=== PATIENT | female | born 1990 ===

== ENCOUNTER → 2016-10-13 | Outpatient (CLI) | payer OTHER ==
[2016-10-13 12:50] LABS: CH 28.3; CHCM 33.7; HCT 28.8 % (34.0-46.0); HDW 2.42; HGB 10.2 gm/dL (11.4-16.0); MCH 29.8 pg (25.0-35.0); MCHC 35.3 g/dL (31.0-37.0); MCV 84.4 fL (80.0-100.0); Mean Platelet Volume 6.8; RBC 3.41 m/uL (3.80-5.40); RDW 13.8 % (11.5-15.5); WBC 9.4 k/uL (3.8-10.6)
[2016-10-13 12:55] LABS: Glucose 81 mg/dL (74-99); Non-African American GFR(MDRD) >60 (>60 ml/min/1.73 sqM)
[2016-10-13 13:26] LABS: Hepatitis B Surface Ag Index 0.04
[2016-10-13 18:31] LABS: Treponemal Ab Non-Reactive (Non-Reactive)
== END | disposition home or self-care (01) ==
LOC: LABWHC1 12:10
PROVIDERS: ATTEND Obstetrics & Gynecology
DX: Z34.82 Encounter for supervision of other normal pregnancy, second trimester (principal); R53.83 Other fatigue
CPT/HCPCS: 36415; 82565; 82947; 85027; 86762; 86780; 86850; 86900; 86901; 87340; 87390

== ENCOUNTER 2016-10-23 22:14 | Observation (INO) | payer OTHER ==
[2016-10-23] MEDS ORDERED: SODIUM CHLORIDE 0.9% 1,000 ML IV STA (23:13)
--- NOTE | 2016-10-23 23:31 | ED ---
Abdominal Pain HPI - General Chief Complaint: Abdominal Pain Stated Complaint: abdominal pain/16 wks preg Time Seen by Provider: 10/23/16 23:00 Source: patient, RN notes reviewed Mode of arrival: ambulatory Limitations: no limitations - History of Present Illness Initial Comments: This a 26 year old female presents emergency Department chief complaint of right upper quadrant abdominal pain. Patient states started last day or 2. Patient states that she does has some frequency and dysuria. Denies any back pain on the right or left side. Denies any vaginal bleeding or vaginal discharge. Patient states she is A0 currently 16 weeks in her OB is Dr. Ledbetter. Patient states that she's had prior sections. Patient denies any chest pain or shortness of breath. Denies any diarrhea constipation. - Related Data Home Medications Medication Instructions Recorded Confirmed Sdn-Eixl-[id number] Acid 1 cap PO DAILY 10/23/16 10/23/16 [-U Capsule (formulary)] Allergies Allergy/AdvReac Type Severity Reaction Status Date / Time No Known Allergies Allergy Verified 10/23/16 23:02 Review of Systems ROS Statement: Those systems with pertinent positive or pertinent negative responses have been documented in the HPI. ROS Other: All systems not noted in ROS Statement are negative. Past Medical History Past Medical History: No Reported History History of Any Multi-Drug Resistant Organisms: None Reported Past Surgical History: Section Past Psychological History: No Psychological Hx Reported Smoking Status: Current every day smoker Past Alcohol Use History: None Reported Past Drug Use History: None Reported General Exam Limitations: no limitations General appearance: alert, in no apparent distress Neck exam: Present: normal inspection. Absent: tenderness, meningismus, lymphadenopathy Respiratory exam: Present: normal lung sounds bilaterally. Absent: respiratory distress, wheezes, rales, rhonchi, stridor Cardiovascular Exam: Present: regular rate, normal rhythm, normal heart sounds. Absent: systolic murmur, diastolic murmur, rubs, gallop, clicks GI/Abdominal exam: Present: soft, tenderness (Mild to moderate right upper quadrant tenderness), normal bowel sounds. Absent: distended, guarding, rebound , rigid Back exam: Absent: CVA tenderness (R), CVA tenderness (L) Skin exam: Present: warm, dry, intact, normal color. Absent: rash Course Vital Signs 10/23/16 10/23/16 22:23 23:57 Temperature 99.7 F H 97.8 F Pulse Rate 125 H 103 H Respiratory 20 18 Rate Blood Pressure 118/62 103/63 O2 Sat by Pulse 98 98 Oximetry Medical Decision Making - Lab Data Result diagrams: 10/23/16 23:03 10/23/16 23:03 Lab Results 10/23/16 10/23/16 10/23/16 Range/Units 23:03 23:03 23:03 WBC 10.7 H (3.8-10.6) k/uL RBC 3.44 L (3.80-5.40) m/uL Hgb 10.0 L (11.4-16.0) gm/dL Hct 29.3 L (34.0-46.0) % MCV 85.3 (80.0-100.0) fL MCH 29.1 (25.0-35.0) pg MCHC 34.1 (31.0-37.0) g/dL RDW 14.2 (11.5-15.5) % Plt Count 292 (150-450) k/uL Neutrophils % 71 % Lymphocytes % 19 % Monocytes % 5 % Eosinophils % 2 % Basophils % 0 % Neutrophils # 7.6 (1.3-7.7) k/uL Lymphocytes # 2.1 (1.0-4.8) k/uL Monocytes # 0.6 (0-1.0) k/uL Eosinophils # 0.3 (0-0.7) k/uL Basophils # 0.0 (0-0.2) k/uL Sodium 136 L (137-145) mmol/L Potassium 3.8 (3.5-5.1) mmol/L Chloride 104 (98-107) mmol/L Carbon Dioxide 21 L (22-30) mmol/L Anion Gap 11 mmol/L BUN 9 (7-17) mg/dL Creatinine 0.40 L (0.52-1.04) mg/dL Est GFR (MDRD) Af Amer >60 (>60 ml/min/1.73 sqM) Est GFR (MDRD) Non-Af >60 (>60 ml/min/1.73 sqM) Glucose 82 (74-99) mg/dL Calcium 9.4 (8.4-10.2) mg/dL Total Bilirubin 0.1 L (0.2-1.3) mg/dL AST 14 (14-36) U/L ALT 26 (9-52) U/L Alkaline Phosphatase 147 H (38-126) U/L Total Protein 6.0 L (6.3-8.2) g/dL Albumin 3.4 L (3.5-5.0) g/dL Amylase 43 (30-110) U/L Lipase 48 (23-300) U/L Urine Color Yellow Urine Appearance Cloudy H (Clear) Urine pH 6.5 (5.0-8.0) Ur Specific Shepherd 1.013 (1.001-1.035) Urine Protein Trace H (Negative) Urine Glucose (UA) Negative (Negative) Urine Ketones Trace H (Negative) Urine Blood Negative (Negative) Urine Nitrite Positive H (Negative) Urine Bilirubin Negative (Negative) Urine Urobilinogen <2.0 (<2.0) mg/dL Ur Leukocyte Esterase Large H (Negative) Urine RBC 2 (0-5) /hpf Urine WBC 68 H (0-5) /hpf Urine WBC Clumps Few H (None) /hpf Ur Squamous Epith Cells 6 H (0-4) /hpf Urine Bacteria Moderate H (None) /hpf Disposition Clinical Impression: Pyelonephritis, Disposition: ADMITTED IP TO THIS [facility] Condition: Good Referrals: Tyrone Crane MD [Primary Care Provider] - 1-2 days
[2016-10-23 23:39] LABS: Basophils % (A) 0 %; CH 28.9; CHCM 34.1; Eosinophils # (A) 0.3 k/uL (0-0.7); Eosinophils % (A) 2 %; HCT 29.3 % (34.0-46.0); Luc # (Auto) 0.18; Luc % (Auto) 2; Lymphocytes # (A) 2.1 k/uL (1.0-4.8); Lymphocytes % (A) 19 %; MCH 29.1 pg (25.0-35.0); MCHC 34.1 g/dL (31.0-37.0); MCV 85.3 fL (80.0-100.0); Mean Platelet Volume 6.2; Monocytes # (A) 0.6 k/uL (0-1.0); Monocytes % (A) 5 %; Neutrophils # (A) 7.6 k/uL (1.3-7.7); Neutrophils % (A) 71 %; RBC 3.44 m/uL (3.80-5.40); RDW 14.2 % (11.5-15.5); WBC 10.7 k/uL (3.8-10.6); WBC (Perox) 10.57
[2016-10-23 23:46] LABS: Appearance,Urine Cloudy (Clear); Bacteria,Urine Moderate /hpf; Bilirubin,Urine Negative (Negative); Glucose,Urine (UA) Negative (Negative); Ketones,Urine Trace (Negative); Leukocyte Esterase,Urine Large (Negative); Nitrite,Urine Positive (Negative); PH, Urine 6.5 (5.0-8.0); Particle Count 54174; Protein,Urine Trace (Negative); RBC,Urine 2 /hpf (0-5); Specific Gravity,Urine 1.013 (1.001-1.035); Squamous Epithelial Cell,Urine 6 /hpf (0-4); UA Billing (MACRO vs. MICRO) MICRO; Urobilinogen,Urine <2.0 mg/dL (<2.0); WBC,Urine 68 /hpf (0-5)
[2016-10-23 23:55] LABS: ALT 26 U/L (9-52); AST 14 U/L (14-36); Alkaline Phosphatase 147 U/L (38-126); Amylase 43 U/L (30-110); Anion Gap 11 mmol/L; Blood Urea Nitrogen 9 mg/dL (7-17); Calcium 9.4 mg/dL (8.4-10.2); Carbon Dioxide 21 mmol/L (22-30); Chloride 104 mmol/L (98-107); Glucose 82 mg/dL (74-99); Non-African American GFR(MDRD) >60 (>60 ml/min/1.73 sqM); Potassium 3.8 mmol/L (3.5-5.1); Sodium 136 mmol/L (137-145); Total Bilirubin 0.1 mg/dL (0.2-1.3)
[2016-10-23] MEDS ORDERED: cefTRIAXone 2,000 MG in SODIUM CHLORIDE 0.9% 100 ML IVPB STA (23:58)
--- NOTE | 2016-10-24 01:28 | US ---
EXAM: US Abdomen Complete CLINICAL HISTORY: 26-year-old female with pain. TECHNIQUE: Real-time ultrasound of the abdomen (complete) with image documentation. COMPARISON: None FINDINGS: Liver: Liver is mildly enlarged, measuring up to 18.5 cm in craniocaudad dimension. No mass. No intrahepatic bile duct dilation. Gallbladder: Unremarkable. No gallstones. Common bile duct: Unremarkable as visualized, measuring up to 0.3 cm in diameter. No stones. No dilation. Pancreas: Unremarkable as visualized. Right kidney: Measures up to 12.5 cm in length. No stones. No solid mass. Extrarenal pelvis versus pelviectasis, likely related to patient's gravid uterus. IMPRESSION: Right extrarenal pelvis versus pelviectasis, likely related to patient's gravid uterus. Mild hepatomegaly suggested.
[2016-10-24] MEDS: SODIUM CHLORIDE 0.9% 1,000 ML IV SCH ×3 (02:49→23:14)
[2016-10-24 03:41] VITALS: BMI 20.5
[2016-10-24] MEDS: ACETAMINOPHEN TAB 325 MG TAB PO PRN ×3 (03:43→19:10)
--- NOTE | 2016-10-24 11:11 | US ---
EXAMINATION TYPE: US OB >= 14 wk twins DATE OF EXAM: 10/24/2016 COMPARISON: NONE CLINICAL HISTORY: PYELONEPHRITIS AND . RLQ pain GESTATIONAL AGE / DATING Physician Established: (16 weeks/0 days) EDC: 04/10/17 Dates by LMP: (16 weeks/0 days) EDC: 04/10/17 Dates by First Scan: no prior Dates by Current Scan for Baby A: (16 weeks/3 days) EDC: 04/07/17 Dates by Current Scan for Baby B: (16 weeks/3 days) EDC: 04/07/17 GENERAL TWIN SURVEY TWIN A LOCATION in regards to maternal abd: right TWIN B LOCATION in regards to maternal abd: left MEMBRANE SEEN: Yes CERVICAL LENGTH (transabdominal; norm > 3.0cm): 3.2 cm TWIN A: SURVEY/BIOMETRY PLACENTA: Posterior PREVIA: No previa SOCORRO:? 12.9 cm?Normal PRESENTATION: Breech LIE: Transvers with head maternal RT BPD: 3.7 cm 17 weeks / 2 days HC: 13.1 cm 16 weeks / 5 days AC: 10.1 cm 16 weeks / 1 days FL: 1.9 cm 15 weeks / 5 days ESTIMATED WEIGHT IN GRAMS: 143 grams ESTIMATED WEIGHT IN LBS/OZS: 0 lbs. 5 oz. WEIGHT PERCENTAGE BASED ON ESTABLISHED DATES: 44.2% HC/AC: 1.29 normal FL/AC: 19.04 Normal HEART RATE: 142 bpm RHYTHM: Normal TWIN B: SURVEY/BIOMETRY PRESENTATION: Variable LIE: Transverse with head maternal LT BPD: 3.5 cm 16 weeks / 5 days HC: 12.6 cm 16 weeks / 3 days AC: 10.7 cm 16 weeks / 4 days FL: 2.1 cm 16 weeks / 1 days ESTIMATED WEIGHT IN GRAMS: 154 grams ESTIMATED WEIGHT IN LBS/OZS: 0 lbs. 5 oz. WEIGHT PERCENTAGE BASED ON ESTABLISHED DATES: 68.4% HC/AC: 1.18 Normal FL/AC: 19.46 Normal HEART RATE: 136 bpm RHYTHM: Normal Viable twin dichorionic/diamniotic gestation seen IMPRESSION: 1. Viable twin dichorionic diamniotic gestation with an estimated heart rate of 136 bpm and age of 16 weeks 3 days.
--- NOTE | 2016-10-24 12:41 | P.OBCN ---
History of Present Illness Consult date: 10/24/16 Reason for consult: other (-twin gestation) Chief complaint: pyelonephritis History of present illness: 26 year old presents at 16 weeks with twin gestation complaining of right flank pain and fever up to 99. She was diagnosed with pyelonephritis and placed on IV rocephin. I was consulted for the twin . Review of Systems All systems: negative Constitutional: Denies chills, Denies fever Eyes: denies blurred vision, denies pain Ears, nose, mouth and throat: Denies headache, Denies sore throat Cardiovascular: Denies chest pain, Denies shortness of breath Respiratory: Denies cough Gastrointestinal: Denies abdominal pain, Denies diarrhea, Denies nausea, Denies vomiting Genitourinary: Denies dysuria, Denies hematuria Musculoskeletal: Denies myalgias Integumentary: Denies pruritus, Denies rash Neurological: Denies numbness, Denies weakness Psychiatric: Denies anxiety, Denies depression Endocrine: Denies fatigue, Denies weight change Past Medical History Past Medical History: No Reported History Additional Past Medical History / Comment(s): eclampsia and blood clot with first History of Any Multi-Drug Resistant Organisms: None Reported Past Surgical History: Section Additional Past Surgical History / Comment(s): x2 Past Psychological History: No Psychological Hx Reported Smoking Status: Current every day smoker Past Alcohol Use History: None Reported Past Drug Use History: None Reported - Past Family History Son(s) Family Medical History: Asthma Medications and Allergies Home Medications Medication Instructions Recorded Confirmed Type Rpb-Jmij-Chgan Acid 1 cap PO DAILY 10/23/16 10/24/16 History [-U Capsule (formulary)] Allergies Allergy/AdvReac Type Severity Reaction Status Date / Time No Known Allergies Allergy Verified 10/24/16 04:00 Exam Osteopathic Statement: *. No significant issues noted on an osteopathic structural exam other than those noted in the History and Physical/Consult. - Vital Signs Vital signs: Vital Signs Temp Pulse Pulse Pulse Resp BP BP 10/24/16 08:00 97.6 F 98 16 108/59 10/24/16 03:48 103 H 10/24/16 03:23 97.9 F 103 H 16 118/63 10/24/16 03:00 98.3 F 105 H 16 113/68 10/24/16 02:00 97.7 F 104 H 18 109/56 10/23/16 23:57 97.8 F 103 H 18 103/63 10/23/16 22:23 99.7 F H 125 H 20 118/62 Pulse Ox 10/24/16 08:00 97 10/24/16 03:48 10/24/16 03:23 98 10/24/16 03:00 98 10/24/16 02:00 99 10/23/16 23:57 98 10/23/16 22:23 98 Intake and Output 10/23/16 10/24/16 10/24/16 22:59 06:59 14:59 Intake Total 120 Output Total 500 Balance -380 Intake: Oral 120 Output: Urine 500 Other: Voiding Method Toilet Toilet # Voids 3 Weight 52.617 kg 52.7 kg Heart: Regular rate and rhythm Lungs: Clear to auscultation bilaterally Abdomen: Soft, nontender, there is some discomfort in the right flank, gravid uterus Extremities: Negative Homans sign Results Result Diagrams: 10/23/16 23:03 10/23/16 23:03 Abnormal Lab Results - Last 24 Hours (Table) 10/23/16 10/23/16 10/23/16 Range/Units 23:03 23:03 23:03 WBC 10.7 H (3.8-10.6) k/uL RBC 3.44 L (3.80-5.40) m/uL Hgb 10.0 L (11.4-16.0) gm/dL Hct 29.3 L (34.0-46.0) % Sodium 136 L (137-145) mmol/L Carbon Dioxide 21 L (22-30) mmol/L Creatinine 0.40 L (0.52-1.04) mg/dL Total Bilirubin 0.1 L (0.2-1.3) mg/dL Alkaline Phosphatase 147 H (38-126) U/L Total Protein 6.0 L (6.3-8.2) g/dL Albumin 3.4 L (3.5-5.0) g/dL Urine Appearance Cloudy H (Clear) Urine Protein Trace H (Negative) Urine Ketones Trace H (Negative) Urine Nitrite Positive H (Negative) Ur Leukocyte Esterase Large H (Negative) Urine WBC 68 H (0-5) /hpf Urine WBC Clumps Few H (None) /hpf Ur Squamous Epith Cells 6 H (0-4) /hpf Urine Bacteria Moderate H (None) /hpf Microbiology - Last 24 Hours (Table) 10/23/16 23:03 Urine Culture - Preliminary Urine,Voided Assessment and Plan (1) Twin gestation in second trimester Status: Acute (2) Pyelonephritis Status: Acute Plan: 1. continue IV antibiotics 2. pain control with tylenol and ice pack/heat to flank but not on the abdomen 3. obstetric US 4. daily dopplers
[2016-10-24] MEDS ORDERED: PRENATAL VIT-IRON-FOLIC ACID 1 EACH CAP PO SCH (16:00)
--- NOTE | 2016-10-24 19:53 | HP ---
DATE OF ADMISSION: 10/24/16July Elias is a 26 year old female who presented to the ED at [facility] with pain in her right flank. This started about two days ago. This was associated with some frequency and dysuria. She had some chills and sweats. No clear fever. She was subsequently seen in the ED and admitted. She is sixteen weeks with twins. Medications prior to admission were vitamins. Past medical history is negative for asthma or COPD. Social history: The patient is a current every day smoker. Does not drink alcohol excessively. Family history is noncontributory. On physical examination, blood pressure is 101/59. Respiratory rate is 16. Pulse rate 85. Temperature 97.2. O2 sat on room air is 97%. HEENT: Unremarkable. Chest is clear. Cardiovascular system reveals edema. Urine culture is showing no growth. White count is 10.7, hemoglobin 10, sodium 136, potassium 3.8, chloride 104, bicarb 21, BUN 9, creatinine 0.4. UA shows trace ketones, positive nitrites, large leukocyte esterase with 68 WBCs in clumps. IMPRESSION: 1. Right sided pyelonephritis. 2. status. At this point in time, await microbiological cultures. ID has seen the patient. Would continue the patient on Rocephin. Keep her pain under control. Continue IV fluids and keep her well hydrated. The prognosis at this time is fair. MTDD
[2016-10-25 00:29] VITALS: TEMP 98
--- NOTE | 2016-10-25 05:16 | CONS ---
DATE OF SERVICE: 10/24/2016 REASON FOR CONSULTATION: Right-sided pyelonephritis. HISTORY OF PRESENT ILLNESS: The patient is a 26-year-old female who is currently 16 weeks with twins presenting to the ER at [facility] with chief complaints of right-sided right upper quadrant pain. The patient said it had been going on for about 2 days. Mainly complained of some frequency of urine, but no significant burning or suprapubic pain. Did have some chills and low grade fever. With these symptoms, the patient presented to [facility] ER. The patient was evaluated by the ER physician. She did have low grade fever of 99. The patient noticed to have significantly positive UA. The patient's white count was 10.7. The patient was started on Rocephin and admitted to the hospital. I was asked to see the patient for further recommendations requiring antibiotic therapy. REVIEW OF SYSTEMS: CONSTITUTIONAL: Positive for weakness and some chills. EYES: No complaint. ENT: No complaint. RESPIRATORY: No complaint. CARDIOVASCULAR: No complaint. GENITOURINARY: As per HPI. GASTROINTESTINAL: As per HPI. MUSCULOSKELETAL: No complaint. INTEGUMENTARY: No complaint. PSYCHOLOGICAL: No complaint. ENDOCRINE: No complaint. NEUROLOGICAL: No complaint. PAST MEDICAL HISTORY: No major illnesses. PAST SURGICAL HISTORY: . SOCIAL HISTORY: The patient is a current everyday smoker. Denies any drinking or drug use. FAMILY HISTORY: No pertinent findings noticed. ALLERGIES: No known drug allergies. Medications include the patient is current only Tylenol, Rocephin, vitamins and IV fluids. On examination, her blood pressure is 101/59 with a pulse of 85, temperature 97.2. She is 97% on room air. General description is a young female, lying in bed, in no distress. No tachypnea or accessory muscles of respiration use. HEENT examination shows slight pallor, no scleral icterus. Oral mucous membrane is dry. NECK: Trachea is central. No thyromegaly. LUNGS: Unlabored breathing. Clear to auscultation anteriorly. No wheeze or crackles. HEART: S1 and S2 regular rate and rhythm.. ABDOMEN: Soft. The patient is mildly tender with right CVA, not as tender. No guarding, no rigidity. No organomegaly. EXTREMITIES: No edema of feet. SKIN EXAMINATION: No rashes or masses palpable. NEUROLOGICALLY: The patient is awake, alert, oriented x3. Mood and affect normal. LABS: Hemoglobin is 10 with white count 10.7 with a BUN 9 and creatinine 0.40. Urine has been positive with large leukocyte esterase with 68 WBC with culture currently pending. Unfortunately, no blood culture was done. DIAGNOSTIC IMPRESSION AND PLAN: The patient admitted to the hospital with urinary frequency, right flank pain, significantly positive UA likely right- sided pyelonephritis likely from enteric Gram-negative pathogen in a patient who is 16 weeks with twins. PLAN: 1. Rocephin 1 gram IV daily. 2. Gentle hydration. 3. Depending upon her clinical condition and culture, will determine her discharge antibiotics. Thank you for this consultation. Will follow this patient along with you. JONY
[2016-10-25 07:53] VITALS: BP 107/68; PULSE 90; RESP 16
[2016-10-25] MEDS: [UNRECOGNIZED DRUG - OTHER] PO SCH ×2 (07:55)
--- NOTE | 2016-10-25 08:42 | P.PN ---
Progress Note - Text Patient seen and examined at bedside. She is feeling much better today. No flank pain. Feeling movement. Afebrile. no urinary symptoms. tolerating reg diet. VSS Abdomen: soft, gravid, nontender Extremeties: manuel hameed's US showed viable di/di twins concordant growth at 16 weeks 3 days Assessment: Her pyelonephritis is clinically improving, I would recommend she start walking more in the hallway or have SCDs so she does not have a high risk of DVT. She could probably be discharged on oral antibiotics at this point and follow up outpatient. She has an appt with YAMILEX on November 07 and with me a week later.
--- NOTE | 2016-10-25 11:34 | PN ---
She has no symptoms today. She has no flank pain. She feels better overall. Her urine cultures are pending. On physical examination, her blood pressure is 107/68, respiratory rate of 16, pulse rate of 90, temperature 98 degrees Fahrenheit and O2 sat on room air is 100%. HEENT is unremarkable. Chest is clear. Cardiovascular system reveals an S1 and S2. Abdomen is soft. There is no flank tenderness. There is no edema. Labs reveal a urine C&S that is pending. IMPRESSION AT THIS TIME: 1. Right-sided pyelonephritis. 2. status. At this point in time, await final recommendations by ID. Anticipate discharge later today if she is otherwise stable on oral antibiotics. JONY
--- NOTE | 2016-10-25 11:43 | PN ---
DATE OF SERVICE: 10/25/2016 Reason for followup is right-sided pyelonephritis. INTERVAL HISTORY: The patient is afebrile. She is feeling better. Pain to the right flank area has improved. Urinary symptoms, especially of frequency has decreased and no burning, though. The patient denies any nausea, vomiting, no significant chest pain, shortness of breath or cough. Anxious to go home. On examination, blood pressure is 107/68 with a pulse of 90, temperature of 98. She is 100% on room air. General description is a young female up in the room in no distress. RESPIRATORY SYSTEM: Unlabored breath, clear to auscultation. HEART: S1, S2, regular rate and rhythm. ABDOMEN: Soft, right flank tenderness has improved. LABS: No new lab has been obtained today. Urine cultures currently pending. DIAGNOSTIC IMPRESSION AND PLAN: Patient with right-sided pyelonephritis in a patient who is 16 weeks with twin . Patient did show overall improvement on the Rocephin and she is insisting on going home with the urine culture not finalized. Antibiotic will be adjusted to Ceftin 500 mg twice a day for another 10 days to finish the course of therapy. ( ). MTDD
== END 2016-10-25 10:58 | disposition home or self-care (01) ==
LOC: EC 22:14 → 6PED 10-24 02:16 → INTOOBSV 10-24 02:16
PROVIDERS: ADMIT Family Medicine; ATTEND Family Medicine
DX: O23.02 Infections of kidney in pregnancy, second trimester (principal); O30.042 Twin pregnancy, dichorionic/diamniotic, second trimester; O99.332 Smoking (tobacco) complicating pregnancy, second trimester; B96.89 Other specified bacterial agents as the cause of diseases classified elsewhere; F17.200 Nicotine dependence, unspecified, uncomplicated; Z3A.16 16 weeks gestation of pregnancy; Z82.5 Family history of asthma and other chronic lower respiratory diseases; Z86.718 Personal history of other venous thrombosis and embolism
CPT/HCPCS: 96361 ×2; 96366 ×2; 96365; 99285; 36415; 80053; 82150; 83690; 85025; 81001; 87086; 87077; 87186; 76705; 76805; 76810; G0378 ×2; J0696 ×3

== ENCOUNTER → 2016-12-26 | Outpatient (CLI) | payer OTHER ==
[2016-12-26 13:09] LABS: CHCM 31.8; HCT 25.6 % (34.0-46.0); HDW 2.98; Hypochromasia Slight; MCH 29.3 pg (25.0-35.0); MCHC 33.1 g/dL (31.0-37.0); MCV 88.5 fL (80.0-100.0); Mean Platelet Volume 6.4; RBC 2.89 m/uL (3.80-5.40); RDW 13.6 % (11.5-15.5); WBC 9.8 k/uL (3.8-10.6)
[2016-12-26 13:12] LABS: HGB 8.5 gm/dL (11.4-16.0)
== END | disposition home or self-care (01) ==
LOC: LABWHC1 10:56
PROVIDERS: ATTEND Obstetrics & Gynecology
DX: O30.042 Twin pregnancy, dichorionic/diamniotic, second trimester (principal); Z3A.00 Weeks of gestation of pregnancy not specified
CPT/HCPCS: 36415; 82950; 85027

== ENCOUNTER 2017-03-02 19:04 | Outpatient (CLI) | payer OTHER ==
[2017-03-02 20:00] VITALS: BP 119/70; PULSE 105; RESP 18; TEMP 97.9
--- NOTE | 2017-03-06 06:44 | P.MSEPDOC ---
Presenting Problems - Arrival Data Date of Arrival on Unit: 03/02/17 Time of Arrival on Unit: 19:00 Mode of Transport: Wheelchair - Complaint OB-Reason for Admission/Chief Complaint: Other Comment: pt has twin , presenting to triage with pressure for last few days,. a few cramps earlier, nothing since Medical History - Information : 3 Para: 2 Term: 1 : 1 Abortions: Spontaneous or Elective: 0 Number of Living Children: 2 - Gestational Age Gestational Age by SOTO (wks/days): 34 Weeks and 3 Days - History Complications: Multiple Review of Systems - Review of Systems Constitutional: No problems Breast: No problems ENT: No problems Cardiovascular: No problems Respiratory: No problems Gastrointestinal: No problems Genitourinary: No problems Musculoskeletal: No problems Neurological: No problems Skin: No problems Vital Signs - Temperature Temperature: 97.9 F Temperature Source: Oral - Pulse Right Brachial Pulse Rate: 105 Pulse Assessment Method: Automatic Cuff - Respirations Respiratory Rate: 18 Oxygen Delivery Method: Room Air O2 Sat by Pulse Oximetry: 97 - Blood Pressure Right Arm Blood Pressure: 119/70 Blood Pressure Mean: 86 Blood Pressure Source: Automatic Cuff Medical Screen Scoring (Pre) - Cervical Exam Dilation: 0 cm = 0 Membranes: Intact - Uterine Contractions Frequency: N/A Duration: N/A Intensity: N/A - Maternal Vital Signs Maternal Temperature: N/A Maternal Blood Pressure: N/A Signs of Preeclampsia: N/A Maternal Respirations: N/A - Pain Assessment Pain Location and Character: Abdomen Pain Scale Used: Numeric (1 - 10) Pain Intensity: 5 Pain Description: *Acute, Aching Pain Frequency: Intermittent Pain Duration Units: Minutes Pain Behavior: None Exhibited Pain Aggravating Factors: None Non-Pharmacological Interventions: Distraction, Inactivity - Maternal Trauma Maternal Trauma: N/A - Assessment NST: Reactive - Total Score Total Score (Pre): 0 - Level of Risk Level of Risk: Low (0-5) Physician Notification (Pre) - Physician Notified Physician Notified Date: 03/02/17 Physician Notified Time: 19:25 Physician/Practitioner Notifed:: Dr. Sherman Spoke With: Dr. Sherman New Order Received: Yes (D/c pt to home) - Notification Comment Comment: cosigned and reviewed by myself Rachna Zamarripa RN Disposition - Disposition OB Disposition: Discharge to home Discharge Date: 03/02/17 Discharge Time: 19:40 I agree with the RN Medical Screening Exam: Yes Risk & Benefit of care provided described in d/c instruction: Yes Diagnosis: FALSE LABOR, UNSPECIFIED
== END 2017-03-02 19:40 | disposition home or self-care (01) ==
LOC: FBPOP 19:04
PROVIDERS: ATTEND Obstetrics & Gynecology
DX: O47.9 False labor, unspecified (principal); Z3A.34 34 weeks gestation of pregnancy
CPT/HCPCS: 59025; G0463; 99213

== ENCOUNTER 2017-03-11 16:38 | Outpatient (CLI) | payer OTHER ==
[2017-03-11 21:40] VITALS: BP 112/66; PULSE 110; RESP 18; TEMP 98
--- NOTE | 2017-03-12 08:51 | P.MSEPDOC ---
Presenting Problems - Arrival Data Date of Arrival on Unit: 03/11/17 Time of Arrival on Unit: 16:40 Mode of Transport: Ambulatory - Complaint OB-Reason for Admission/Chief Complaint: NST Medical History - Information : 3 Para: 2 Term: 1 : 1 Abortions: Spontaneous or Elective: 0 Number of Living Children: 2 - Gestational Age Gestational Age by SOTO (wks/days): 35 Weeks and 5 Days - History Complications: Multiple Review of Systems - Review of Systems Constitutional: No problems Breast: No problems ENT: No problems Cardiovascular: No problems Respiratory: No problems Gastrointestinal: No problems Genitourinary: No problems Musculoskeletal: No problems Neurological: No problems Skin: No problems Vital Signs - Temperature Temperature: 98 F Temperature Source: Oral - Pulse Right Brachial Pulse Rate: 110 Pulse Assessment Method: Automatic Cuff - Respirations Respiratory Rate: 18 Oxygen Delivery Method: Room Air - Blood Pressure Right Arm Blood Pressure: 112/66 Blood Pressure Mean: 81 Blood Pressure Source: Automatic Cuff Medical Screen Scoring (Pre) - Cervical Exam Dilation: Exam Deferred Effacement: Exam Deferred - Uterine Contractions Frequency: N/A - Maternal Vital Signs Maternal Temperature: N/A Signs of Preeclampsia: N/A Maternal Respirations: N/A - Pain Assessment Pain Scale Used: Numeric (1 - 10) Pain Intensity: 2 Pain Description: Cramping Pain Behavior: None Exhibited - Maternal Trauma Maternal Trauma: N/A - Assessment Baseline FHR: 145/140 Heart Rate - NICHD Category: Category I (Normal) = 0 NST: Reactive Position: N/A Station: N/A - Total Score Total Score (Pre): 0 - Level of Risk Level of Risk: Low (0-5) Physician Notification (Pre) - Physician Notified Physician Notified Date: 03/11/17 Physician Notified Time: 17:08 Physician/Practitioner Notifed:: aria Spoke With: aria New Order Received: Yes - Notification Comment Comment: reported pt here for nst as ordered by dr london per pt. reported reactive twin nst and no contractions. pt may be discharged home Disposition - Disposition OB Disposition: Discharge to home Discharge Date: 03/11/17 Discharge Time: 17:20 I agree with the RN Medical Screening Exam: Yes Risk & Benefit of care provided described in d/c instruction: Yes Diagnosis: MULTIPLE GESTATION, UNSPECIFIED, THIRD TRIMESTER
== END 2017-03-11 17:20 | disposition home or self-care (01) ==
LOC: FBPOP 16:38
PROVIDERS: ATTEND Obstetrics & Gynecology
DX: O30.93 Multiple gestation, unspecified, third trimester (principal); Z3A.35 35 weeks gestation of pregnancy
CPT/HCPCS: 59025; G0463; 99213

== ENCOUNTER → 2023-04-06 | Outpatient (CLI) | payer OTHER ==
--- NOTE | 2023-04-06 16:32 | CT ---
EXAMINATION TYPE: CT angio chest DATE OF EXAM: 04/06/2023 4:20 PM COMPARISON: None HISTORY: Family history of aneurysm Automated exposure control for dose reduction was used. CONTRAST: CTA scan of the thorax is performed following uneventful administration nonionic IV contrast. Exam wa s performed according to the CTA protocol. 3-D processing was performed. FINDINGS: LUNGS: There is minimal groundglass density in the subpleural parenchymal lung in the lower lobes most likel y representing mild atelectasis. There is no suspicious lung mass or nodule. There is no abnormal air space consolidation or abnormal interstitial density.. There is no pleural effusion or pneumothorax seen. The tracheobronchial tree is patent. MEDIASTINUM: There is satisfactory enhancement of the pulmonary artery and its branches, there is no CT evidence for pulmonary embolism. There are no greater than 1 cm hilar or mediastinal lymph nodes. No pericardial effusion is seen. The great vessels the chest are normal is no evidence of aneurysm . OTHER: No additional significant abnormality is seen. IMPRESSION: 1. NO EVIDENCE OF THORACIC AORTIC ANEURYSM. 2. NO PULMONARY EMBOLUS. 3. NO ACUTE CARDIOPULMONARY DISEASE.
== END | disposition home or self-care (01) ==
LOC: RADCTMAIN 15:28
PROVIDERS: ATTEND Family Medicine
DX: J98.4 Other disorders of lung (principal); Z82.49 Family history of ischemic heart disease and other diseases of the circulatory system
CPT/HCPCS: 71275; Q9967